=== PATIENT | female | born 1965 | race Caucasian/White ===

== ENCOUNTER 2016-08-16 21:07 | Emergency (ER) | payer BC ==
[~2016-08-16] VITALS: Ht 157.5 cm; Wt 76.5 kg
[2016-08-16 21:10] VITALS: Ht 157.5 cm; Wt 76.5 kg
[2016-08-16] MEDS ORDERED: ALBUTEROL 0.083% (NEB) 2.5 MG/3 ML AMP NEB STA (22:12)
[2016-08-16] MEDS ORDERED: IPRATROPIUM (NEB) 0.5 MG/2.5 ML AMP NEB STA (22:12)
[2016-08-16] MEDS ORDERED: predniSONE 20 MG TAB PO ONE (22:30)
--- NOTE | 2016-08-16 23:22 | RADRPT ---
PROCEDURE: XR Chest. CLINICAL INDICATION: Shortness of breath. TECHNIQUE: AP Portable chest. COMPARISON: 05/16/2015 FINDINGS: The cardiomediastinal silhouette is normal. The lungs are clear. The osseous structures are unrema rkable. IMPRESSION: No acute findings. RPTAT: HIKT .Enzo Giles MD, MD Date Time Electronically viewed and signed by .Enzo Giles MD, on 08/16/2016 23:21 .T/
[2016-08-16] MEDS ORDERED: PRED20TA PO (23:27)
[2016-08-16] MEDS ORDERED: ALBU8.5H3 INH (23:28)
[2016-08-16] MEDS ORDERED: ALBU2.5V3 NEB (23:28)
--- NOTE | 2016-08-16 23:31 | ERD ---
ER Documentation Chief Complaint Date/Time DATE: 08/16/16 TIME: 23:29 Chief Complaint sob, cough x 1 day HPI Patient is a 51-year-old nondiabetic female who has a history of asthma complaining of cough and asthma exacerbation for 1 day. She uses albuterol inhaler at home but it did not help. She denies any chest pain. She denies fever. Denies any nausea or vomiting. ROS All systems reviewed and are negative except as per history of present illness. Medications Home Meds Active Scripts Albuterol Sulfate* (Proair HFA*) 8.5 Gm Hfa.aer.ad, 2 PUFF INH Q4, #1 INHALER Prov:BAR MALONE PA-C 08/16/16 Albuterol Sulfate* (Albuterol Sulfate* Neb) 0.083%-3 Ml Neb, 2.5 MG NEB Q4 Y for SHORTNESS OF BREATH, #30 EA Prov:BRA MALONE PA-C 08/16/16 Prednisone* (Prednisone*) 20 Mg Tab, 40 MG PO DAILY for 4 Days, TAB Prov:BAR MALONE PA-C 08/16/16 Allergies Allergies: Coded Allergies: caffeine (Verified Allergy, Mild, 05/16/15) hydrocodone (Verified Adverse Reaction, Mild, N/V, 05/16/15) PMhx/Soc History of Surgery: Yes (CSec X 5) Anesthesia Reaction: No Hx Neurological Disorder: No Hx Respiratory Disorders: Yes (asthma) Hx Cardiac Disorders: Yes (HTN TREATING ONLY WITH DIET AND EXERCISE) Hx Psychiatric Problems: No Hx Miscellaneous Medical Probl: No Hx Alcohol Use: No Hx Substance Use: No Hx Tobacco Use: No Smoking Status: Never smoker FmHx Family History: No diabetes Physical Exam Vitals Vital Signs Date Time Temp Pulse Resp B/P Pulse Ox O2 Delivery O2 Flow Rate FiO2 08/16/16 22:19 Nasal Cannula 2 08/16/16 21:10 98.9 101 20 177/91 99 Physical Exam General: well developed, well nourished, alert, nontoxic, no distress Head: normocephalic, atraumatic Eyes: PERRL, normal conjunctiva Neck: Supple, nontender, no lymphadenopathy, no midline tenderness Oropharynx: no tonsilar erythema or edema, uvula midline, no exudates, no kissing tonsils, no drooling Respiratory: Bilateral inspiratory wheezing, no use of accessory muscles Cardiovascular: RRR, No murmurs GI: soft, non tender, non distended, negative murphys sign, negative mcburneys point tenderness, no cva tenderness bilaterally, no rebound or guarding Back: no midline tenderness, no step offs or bony abnormalities, sensation to light touch in tact Results 24 hrs Current Medications Medications (Trade) Dose Ordered Sig/Freya Route PRN Reason Start Time Stop Time Status Last Admin Dose Admin Prednisone (Prednisone) 40 mg ONCE ONCE PO 08/16/16 22:30 08/16/16 22:31 DC 08/16/16 22:16 Albuterol (Proventil 0.083% (Neb)) 2.5 mg ONCE STAT NEB 08/16/16 22:12 08/16/16 22:13 DC 08/16/16 22:29 Ipratropium [place] (Atrovent 0.02% (Neb)) 0.5 mg ONCE STAT NEB 08/16/16 22:12 08/16/16 22:13 DC 08/16/16 22:28 Procedures/MDM Patient presents with asthma exacerbation. She has mild tachycardia of 101. Hypertension to 177/91 otherwise vital signs are normal and she is satting at 98 % on room air. Chest x-ray showed no acute disease. She was given breathing treatment and prednisone and has significant improvement of her symptoms. He was discharged with short course of prednisone, prescription for nebulizer, nebulizer solution, and albuterol inhaler. Recommended this patient follow up with her primary care doctor within 48 hours or return to the emergency room for any worsening of symptoms. However this time I do believe there is suitable for outpatient management. I answered all their questions and they agreed with the plan and were discharged home. Departure Diagnosis: Primary Impression: Asthma with acute exacerbation Condition: Stable Patient Instructions: Asthma, Acute (Adult) Additional Instructions: Call your primary care doctor TOMORROW for an appointment during the next 1-2 days.See the doctor sooner or return here if your condition worsens before your appointment time. BAR MALONE PA-C Aug 16, 2016 23:31
[2016-08-16 23:35] VITALS: PULSE 105; RESP 18
== END 2016-08-16 23:36 | disposition home or self-care (01) ==
LOC: FTE 21:07
DX: J45.901 Unspecified asthma with (acute) exacerbation (principal); I10 Essential (primary) hypertension
CPT/HCPCS: 71010; 99284; J7512